=== PATIENT | male | born 1945 | race Caucasian/White ===

== ENCOUNTER 2016-12-16 12:54 | Observation (INO) ==
--- NOTE | 2016-12-16 13:01 | Emergency Department Note ---
Disposition Clinical Impression: Vertigo, Weakness Disposition: Admitted As Inpatient Condition: Fair Referrals: Toney Sheldon MD [Primary Care Provider] - Forms: ED Satisfaction Letter Dizziness HPI - General Chief Complaint: ED Dizziness Stated Complaint: "Thinks he had a mini stroke" Time Seen by Provider: 12/16/16 12:55 Source: patient, EMS Mode of arrival: EMS Limitations: no limitations Nursing Notes Reviewed: Yes Vital Signs Reviewed: Yes - History of Present Illness HPI Narrative: Patient relates that he is outside working washing his car and his truck. Relates he was walking back to the house when he felt "wobbly and weak". He does report that he had a spinning sensation consistent with vertigo and had to get down on his hands and knees to crawl because he was afraid he would fall. He states that with this he has felt "worn out". He denies any localizing numbness, tingling or weakness. He states he had the vertiginous symptoms as well as some blurring in his vision. He denies any other localized loss of vision. He denies any type of headache, nausea, chest pain or palpitations. Denies shortness of breath or diaphoresis. He denies any pain of any kind. He states he is feeling better now although the knee still feels weak. Denies any recent change in medication or any type of head injury in the preceding days. He states he did have something similar about 7 years ago that was thought to be a TIA. He called the squad to be brought to the emergency department for fear of having a TIA. Pt Subjective Complaint: dizziness, difficulty walking, weakness Onset (ago): Just [employer] Timing: sudden onset, now resolved Description: sense of movement, "room spinning", lightheadedness, off-balance, difficulty walking History of similar episodes: Yes History of trauma: No Severity: moderate Improves with: remaining still Worsens with: movement, position Associated symptoms: Reports: ataxia, weakness, vision changes (Blurry). Denies : chest pain, confusion, diaphoresis, fever, chills, malaise, rash, shortness of breath, syncope, nausea, vomiting, palpitations - Related Data Home Medications Medication Instructions Recorded Confirmed Crestor 10 mg PO DAILY 06/19/15 12/16/16 Losartan 100 mg PO DAILY 06/19/15 12/16/16 Plavix 75 mg PO DAILY 06/19/15 12/16/16 Allergies Allergy/AdvReac Type Severity Reaction Status Date / Time Amoxicillin [From Amoxil] Allergy See Verified 06/19/15 17:21 Comments celecoxib [From Celebrex] Allergy See Verified 06/19/15 17:21 Comments codeine Allergy See Verified 06/19/15 17:21 Comments Doxepin Allergy See Verified 06/19/15 17:21 Comments gabapentin Allergy See Verified 06/19/15 17:21 Comments morphine Allergy See Verified 06/19/15 17:21 Comments Oxycodone [From OxyContin] Allergy Confusion Verified 12/16/16 13:03 promethazine [From Phenergan] Allergy See Verified 06/19/15 17:21 Comments tiagabine Allergy See Verified 06/19/15 17:21 Comments All systems ED: reviewed and negative except as stated. Past Medical History - Past Medical History Attestation: Yes The following information was validated with the patient. Source: patient, old records reviewed, nursing notes reviewed Medical history: Reports: arthritis, COPD, hyperlipidemia, hypertension Surgical history: Reports: angioplasty/stent, cholecystectomy, herniorrhaphy Psychiatric history: Reports: no psych history - Social History Smoking Status: Former smoker Smokeless Tobacco Status: No Alcohol use: Reports: none Drug use: Reports: none Physical Exam - General Limitations: no limitations General appearance: alert, in no apparent distress - Head Head exam: atraumatic, normocephalic, normal inspection - Eye Eye exam: Present: normal appearance, PERRL, EOMI. Absent: scleral icterus, conjunctival injection - ENT ENT exam: normal exam, normal oropharynx, mucous membranes moist - Neck Neck exam: Present: normal inspection, full ROM, trachea midline - Chest Chest inspection: Present: normal inspection, symmetric chest wall rise - Respiratory Respiratory exam: Present: normal lung sounds bilaterally. Absent: respiratory distress, wheezes, prolonged expiratory phase - Cardiovascular Cardiovascular exam: Present: regular rate, normal rhythm, normal heart sounds. Absent: tachycardia - Abdominal Exam Abdominal exam: Present: soft, Non-Tender, normal bowel sounds. Absent: tenderness, distention, guarding, rebound, rigidity - Extremities Exam Extremities exam: Present: normal inspection, full ROM, normal capillary refill. Absent: tenderness, pedal edema - Expanded Lower Extremity Exam Neurovascular/Tendon exam: Present: normal capillary refill. Absent: motor deficit, sensory deficit, tendon deficit Gait: not tested/not observed - Back Exam Back exam: Present: normal inspection, full ROM. Absent: tenderness, vertebral tenderness - Neurological Exam Neurological exam: Present: alert, oriented X3, CN II-XII intact, reflexes normal. Absent: motor sensory deficit - Psychiatric Psychiatric exam: Present: normal affect, normal mood - Skin Skin exam: Present: warm, dry, intact, normal color. Absent: rash, diaphoresis , pallor Course Course Narrative: 1405: All, EKG, x-ray and monitoring have been discussed with the patient and family. He states he was feeling better but he failed a trial of tried to stand or walk about the department. With this he does not feel he will be able to get by at home because he does live alone. I have discussed the care with Dr. De Anda and he is agreeable with observation of this patient to the hospital floor. Verbal orders have been obtained for this patient's observation. Vital Signs Temperature 98.1 F 12/16/16 12:56 Pulse Rate 58 12/16/16 12:56 Respiratory Rate 24 12/16/16 12:56 Blood Pressure 150/91 12/16/16 12:56 O2 Sat by Pulse Oximetry 95 12/16/16 12:56 Temperature 98.1 F 12/16/16 14:06 Pulse Rate 62 12/16/16 14:06 Respiratory Rate 17 12/16/16 14:06 Blood Pressure 146/85 12/16/16 14:06 O2 Sat by Pulse Oximetry 95 12/16/16 14:06 Oxygen Delivery Oxygen Delivery Room Air Dizziness - Differential Diagnosis Likely: benign paroxysmal positional vertigo, transient cerebral ischemia, other occult medical condition - Medical Records Medical records reviewed: Yes I reviewed the patient's medical records. - Lab Data Lab results reviewed: Yes I reviewed the patient's lab results. Result diagrams: 12/16/16 13:15 12/16/16 13:15 Lab Results 12/16/16 12/16/16 12/16/16 Range/Units 13:15 13:15 13:15 WBC 6.1 (4.3-11.1) K/mcL RBC 4.64 (4.19-5.50) M/mcL Hgb 14.9 (12.9-16.9) g/dL Hct 43.7 (37.5-50.1) % MCV 94.2 (83.0-100.0) fL MCH 32.1 (28.0-33.3) pg MCHC 34.1 (31.6-35.5) g/dL RDW 12.0 (11.5-14.5) % Plt Count 186 (140-400) K/mcL MPV 10.9 (9.4-12.4) fL Immature Gran % 0.3 (0-4) % Seg Neutrophils % 68.2 % Lymphocytes % 16.7 % Monocytes % 7.9 % Eosinophils % 6.1 % Basophils % 0.8 % Neutrophils # 4.2 (1.6-8.9) K/mcL Lymphocytes # 1.0 (0.6-4.6) K/mcL Monocytes # 0.5 (0.0-1.3) K/mcL Eosinophils # 0.4 (0.0-0.6) K/mcL Basophils # 0.1 (0.0-0.2) K/mcL Sodium 144 (136-145) mEq/L Potassium 4.1 (3.5-4.5) mEq/L Chloride 112 H (98-109) mEq/L Carbon Dioxide 21 (19-29) mEq/L BUN 13 (8-26) mg/dL Creatinine 0.97 (0.72-1.25) mg/dL Est GFR ( Amer) > 60 (> 60) Est GFR (Non-Af Amer) > 60 (> 60) BUN/Creatinine Ratio 13 (6-26) Glucose 100 H (70-99) mg/dL Calculated Osmolality 298 (280-300) Calcium 9.6 (8.6-10.8) mg/dL Troponin I 0.01 (0-0.03) ng/mL - Radiology Data Radiology results reviewed: Yes I reviewed the patient's radiology results. CT head is performed. This is reviewed on bone and soft tissue windows. There is no evidence for acute intracranial bleed, shift, mass or edema. Patient has age-appropriate atrophy. Mastoids and sinuses appear normal. There is no fracture evident. This is on my interpretation. Impressions Head CT 12/16/16 12:59 IMPRESSION: No acute intracranial abnormality. D/ / Misael Moon MD / Misael Moon MD Interpreting Provider: Misael Moon MD - EKG Data EKG attestation: Yes I reviewed and interpreted this EKG. EKG shows normal: sinus rhythm, axis, intervals, QRS complexes, ST-T waves Rate: normal (57) Interpretation: no acute changes, normal EKG
[2016-12-16 13:25] LABS: Basophils # 0.1 K/mcL (0.0-0.2); Basophils % 0.8 %; Eosinophils # 0.4 K/mcL (0.0-0.6); Eosinophils % 6.1 %; Hematocrit 43.7 % (37.5-50.1); Hemoglobin 14.9 g/dL (12.9-16.9); Immature Granulocytes % 0.3 % (0-4); Lymphocytes % 16.7 %; Mean Corpuscular HGB Conc 34.1 g/dL (31.6-35.5); Mean Corpuscular Hemoglobin 32.1 pg (28.0-33.3); Mean Corpuscular Volume 94.2 fL (83.0-100.0); Mean Platelet Volume 10.9 fL (9.4-12.4); Monocytes # 0.5 K/mcL (0.0-1.3); Monocytes % 7.9 %; Neutrophils # 4.2 K/mcL (1.6-8.9); Platelet Count 186 K/mcL (140-400); Red Blood Count 4.64 M/mcL (4.19-5.50); Segmented Neutrophils % 68.2 %
[2016-12-16 13:42] LABS: BUN/Creatinine Ratio 13 (6-26); Blood Urea Nitrogen 13 mg/dL (8-26); Calcium 9.6 mg/dL (8.6-10.8); Carbon Dioxide 21 mEq/L (19-29); Chloride 112 mEq/L (98-109); Glucose 100 mg/dL (70-99); Osmolality,Calculated 298 (280-300); Potassium 4.1 mEq/L (3.5-4.5); Sodium 144 mEq/L (136-145); eGFR For African Americans > 60 (> 60); eGFR For Non-African Americans > 60 (> 60)
[2016-12-16] MEDS ORDERED: MOM Conc 10 ML UD.LIQ PO PRN (14:10)
[2016-12-16] MEDS ORDERED: Naloxone 0.4 MG/ML INJ IVP PRN (14:10)
[2016-12-16] MEDS ORDERED: Ondansetron 4 MG/2 ML VIAL IVP PRN (14:10)
[2016-12-16] MEDS: Acetaminophen 325 MG TABLET PO PRN ×2 (15:55→21:09)
--- NOTE | 2016-12-16 18:34 | Internal Med History&Physical ---
Date of Encounter: 12/16/16 Time of Encounter: 18:00 Assessment and Plan (1) Vertigo Current visit: Yes Status: Acute Now resolved. Antivert has been ordered prn. Duration of symptoms was longer than typical BPPV. Suspect vestibular migraine or vestibular neuronitis. (2) Hypertension Current visit: Yes Status: Chronic Continue losartan. We will monitor blood pressure. Qualifiers: Hypertension type: essential hypertension Qualified Code(s): I10 - Essential (primary) hypertension Internal Medicine - H&P: HPI Chief complaint: Vertigo Admitted From: Home Plans for Post Hospital Care: Home History of present illness: Mr. Goodson is a 71 year old male who came to the emergency room stating he had sudden onset of vertigo as he was entering his house after washing his car and truck. He reports no other neurologic symptom other than vertigo. When he did not improve after a few minutes he came to the emergency room. He was admitted to [facility] for ongoing care needs. He states a previous similar episode approximately 9 years ago and he was told he had a "TIA". He did not have any similar recurrent symptoms since then. He denies any other neurologic problems. He specifically denies strokes or seizures. He has had no head trauma and has had no infectious symptoms. He states he feels back to his baseline now and wishes to be discharged home. Past Med Surg Social Fam HX - Past Medical History Medical history: arthritis, COPD, hyperlipidemia, hypertension Psychiatric history: no psych history - Past Surgical History Surgical History: angioplasty/stent, cholecystectomy, herniorrhaphy - Social History Smoking Status: Former smoker Smokeless Tobacco Status: No Alcohol use: none Drug use: none Internal Medicine - H&P: Meds Crestor 10 mg PO DAILY 06/19/15 [History] Losartan 100 mg PO DAILY 06/19/15 [History] Plavix 75 mg PO DAILY 06/19/15 [History] Allergies Amoxicillin [From Amoxil] Allergy (Verified 06/19/15 17:21) See Comments unknown celecoxib [From Celebrex] Allergy (Verified 06/19/15 17:21) See Comments unknown codeine Allergy (Verified 06/19/15 17:21) See Comments unknown Doxepin Allergy (Verified 06/19/15 17:21) See Comments unknown gabapentin Allergy (Verified 06/19/15 17:21) See Comments unknown morphine Allergy (Verified 06/19/15 17:21) See Comments unknown Oxycodone [From OxyContin] Allergy (Verified 12/16/16 13:03) Confusion promethazine [From Phenergan] Allergy (Verified 06/19/15 17:21) See Comments unknown tiagabine Allergy (Verified 06/19/15 17:21) See Comments unknown All Systems PM: A 10-system review of systems was performed and is negative for pertinent findings except as documented above in the HPI. Review of systems: Gen.: He states his weight has been stable the past few months Cardiovascular: He has history of hypertension. He has known ASHD status post HI 2009 with 1 stent placed. Repeat catheter in 2012 showed no lesions requiring intervention. He has had no further stress test and does not get chest pain on exertion. He denies heart failure DVT or pulmonary embolus Respiratory: He smoked from age [age] up to 2 packs per day. He has a diagnosis of COPD but does not wear home oxygen. GI: He had cholecystectomy and umbilical hernia repair 2013. He denies disorders of his liver or exocrine pancreas : He denies hematuria dysuria or kidney stones Neurologic: As per history of present illness Endocrine: He has hyperlipidemia but denies diabetes or thyroid disease Hematology/oncology: Denies blood disorders cancers or anemia Psychiatric: He denies anxiety depression or other mental health issues Musculoskeletal: Denies arthritis gout or other bone joint or muscle disorders. - Constitutional Vitals: Temp Pulse Resp BP Pulse Ox 97.7 F 53 16 169/65 96 12/16/16 14:59 12/16/16 14:59 12/16/16 14:59 12/16/16 14:59 12/16/16 14:59 Exam: Gen.: He is well-developed well-nourished male who appears in no severe distress at present time HEENT: Head is atraumatic and normocephalic. Eyes: EOMI. There is no scleral icterus. Mouth: Mucosa is moist. Ears: His tympanic membranes are unremarkable bilaterally. Neck: Supple and nontender. There is no thyromegaly or adenopathy noted. There are no carotid bruits Heart: Regular without murmurs gallops or ectopics Lungs: No wheezes or crackles heard Abdomen: Soft and nontender. No masses or guarding are noted. Extremities: There is no cyanosis edema or clubbing noted. Dorsalis pedis and posttibial pulses are 1-2 over 2 bilaterally. Neurologic: Mental status: He is talkative and a good historian. Cranial nerves : Smile is symmetric. Forehead wrinkles bilaterally. Tongue protrudes midline. EOMI. He has no reproduction of vertigo symptoms on modified Hallpike maneuver or [id number] head turning. Motor: There is no pronator drift. Cerebellar: Finger to nose is intact bilaterally. Skin: Warm and dry Internal Med - H&P Results - Labs CBC & Chem 7: 12/16/16 13:15 12/16/16 13:15 - VTE Documentation of Mechanical Device: Graduated compression elastic hosiery
[2016-12-17 06:46] VITALS: BP 155/88
--- NOTE | 2016-12-17 08:23 | Discharge Summary ---
Date of Encounter: 12/17/16 Time of Encounter: 08:15 - Discharge Diagnosis (1) Vertigo Priority: Primary Status: Acute (2) Hypertension Priority: Secondary Status: Chronic Qualifiers: Hypertension type: essential hypertension Qualified Code(s): I10 - Essential (primary) hypertension - Discharge Medications Home Medications: Crestor 10 mg PO DAILY 06/19/15 [History] Losartan 100 mg PO DAILY 06/19/15 [History] Plavix 75 mg PO DAILY 06/19/15 [History] Allergies/Adverse Reactions: Allergies Amoxicillin [From Amoxil] Allergy (Verified 06/19/15 17:21) See Comments unknown celecoxib [From Celebrex] Allergy (Verified 06/19/15 17:21) See Comments unknown codeine Allergy (Verified 06/19/15 17:21) See Comments unknown Doxepin Allergy (Verified 06/19/15 17:21) See Comments unknown gabapentin Allergy (Verified 06/19/15 17:21) See Comments unknown morphine Allergy (Verified 06/19/15 17:21) See Comments unknown Oxycodone [From OxyContin] Allergy (Verified 12/16/16 13:03) Confusion promethazine [From Phenergan] Allergy (Verified 06/19/15 17:21) See Comments unknown tiagabine Allergy (Verified 06/19/15 17:21) See Comments unknown Date of admission: 12/16/16 14:25 Primary care physician: Toney Sheldon MD - Patient Status Disposition: Home, Self-Care Condition: Fair Functional capacity at discharge: independent ambulation Overall status at discharge: patient is back to baseline - Discharge Instructions Follow Up With: Toney Sheldon MD [Primary Care Provider] - 1 week - Diet and Activity Activity: resume usual activities as tolerated Diet: advance to your usual diet Hospital course: Mr. Goodson is a 71 year old male who came to the emergency room stating he had sudden onset of vertigo as he was entering his house after washing his car and truck. He reports no other neurologic symptom other than vertigo. When he did not improve after a few minutes he came to the emergency room. He was admitted to [facility] for ongoing care needs. Initial orders were written by the emergency room physician. I saw him on December 16 and performed the history and physical. He had no further episodes of vertigo. The exact etiology of his vertigo was not determined with certainty. He denied migraine headache history. I did not feel any additional medication to be given at this time. He will be discharged home today and follow with his PCP Dr. Toney Sheldon within 1 week. - Time Spent with Patient Total time spent providing and/or coordinating discharge services: - Constitutional Vitals: Temp Pulse Resp BP Pulse Ox 97.5 F L 57 16 155/88 93 12/17/16 06:43 12/17/16 06:43 12/17/16 06:43 12/17/16 06:43 12/17/16 06:43 - VTE Documentation of Mechanical Device: Graduated compression elastic hosiery
--- NOTE | 2016-12-17 12:59 | Electrocardiograph Report ---
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
== END 2016-12-17 09:24 | disposition home or self-care (01) ==
LOC: EMEROOPIK 12:54 → INPPIK 12:54
PROVIDERS: ADMIT Internal Medicine; ATTEND Internal Medicine